=== PATIENT | male | born 1960 | race Caucasian/White ===

== ENCOUNTER 2019-03-29 02:45 | Emergency (ER) | payer MEDICARE, MEDICAID ==
[2019-03-29] MEDS ORDERED: DUONEB 0.5-3 MG/3 ml Neb IH ONE ×2 (03:00→03:18)
[2019-03-29] MEDS ORDERED: Lasix 40 MG/4 ML IV ONE (03:04)
--- NOTE | 2019-03-29 03:10 | ERPHSYRPT ---
- History of Present Illness Time Seen by Provider: 03/29/19 03:04 Source: patient, EMS Exam Limitations: other (patient with history of brain cancer, somewhat somnolent) Physician History: This is a 58-year-old white male with a history of brain cancer, congestive heart failure, myocardial infarction, atherosclerotic coronary artery disease, diabetes mellitus who states he has kidney problems, also high blood pressure and hyperlipidemia He is brought here by medics from [facility] patient with complaint of shortness of breath for 3 weeks he states he's been having lower extremity edema he states he hurts all over. 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 Apparently his family asked that he be brought here be because of his stay he was sent home from [place] last time he went there. Patient does state that if his hospitalized he wants to go to [place]. Past medical history includes congestive heart failure myocardial infarction, atherosclerotic coronary artery disease, diabetes, brain cancer, kidney problems , high blood pressure, hyperlipidemia Past surgical history includes brain surgery, C4-C5 fusion Timing/Duration: week(s) (3 weeks) Severity: moderate Associated Symptoms: shortness of breath, other (bilateral leg edema, pain all over), No nausea, No vomiting, No abdominal pain, No heartburn, No diaphoresis, No cough, No chills, No chest pain, No fever, No headaches, No loss of appetite , No malaise, No rash, No syncope, No seizure, No weakness Allergies/Adverse Reactions: No Known Drug Allergies Allergy (Unverified 03/29/19 03:09) Home Medications: Amlodipine Besylate 5 mg [Norvasc 5 mg] 1 tab PO DAILY 03/29/19 [History] Clonazepam 1 tab PO BID PRN 03/29/19 [History] Furosemide 40 mg [Lasix 40 MG] 1 tab PO DAILY 03/29/19 [History] Glipizide 5 mg [Glucotrol 5 MG] 1 tab PO BID 03/29/19 [History] HydrALAzine HCL 25 MG TAB [Apresoline 25 MG TABLET] 1 tab PO BID 03/29/19 [History] Pravastatin Sodium 20 mg PO HS 03/29/19 [History] Prochlorperazine Maleate 10 mg [Compazine 10 mg] 1 tab PO Q6HPRN PRN 03/29/19 [ History] dexAMETHasone [Dexamethasone] 1 tab PO QID 03/29/19 [History] - Review of Systems Constitutional: No Fever, No Chills Eyes: No Symptoms Ears, Nose, & Throat: No Symptoms Respiratory: Dyspnea Cardiac: Edema, No Chest Pain Abdominal/Gastrointestinal: No Abdominal Pain, No Nausea, No Vomiting, No Diarrhea Genitourinary Symptoms: No Dysuria Musculoskeletal: Other (eedema lower extremities), No Back Pain, No Neck Pain Skin: Other (weeping from skin lower extremities) Neurological: No Dizziness, No Focal Weakness, No Sensory Changes Psychological: No Symptoms Endocrine: No Symptoms All Other Systems: Reviewed and Negative - Past Medical History Neurological History: Other (brain cancer) Cardiac History: Congestive Heart Failure, Coronary Artery Disease, High Cholesterol, Hypertension, Myocardial Infarction ([place]) Respiratory History: CHF Endocrine Medical History: Diabetes Type II - Past Surgical History Other Surgical History: brain surgery, C5-C6 surgery - Nursing Vital Signs Nursing Vital Signs: Initial Vital Signs Temperature 97.4 F 03/29/19 02:55 Pulse Rate 91 H 03/29/19 02:55 Respiratory Rate 20 03/29/19 02:55 Blood Pressure 144/94 03/29/19 02:55 O2 Sat by Pulse Oximetry 94 L 03/29/19 02:55 Pain Scale Pain Intensity 9 - Physical Exam General Appearance: other (Morbidly obese white male somnolent able to answer questions well) Eye Exam: PERRL/EOMI, eyes nml inspection Ears, Nose, Throat Exam: normal ENT inspection, TMs normal, pharynx normal, moist mucous membranes Neck Exam: normal inspection, non-tender, supple, full range of motion Respiratory Exam: diminished breath sounds, wheezing (few wheezes) Cardiovascular Exam: regular rate/rhythm, capillary refill <2 sec, other (edema lower extremities weepingareas bilateral legs) Gastrointestinal/Abdomen Exam: soft, normal bowel sounds, No tenderness, No mass Extremity Exam: other (weeping areas bilateral legs) Neurologic Exam: oriented x 3, angiography technologist II-XII nml as tested, No alert (somnolent answers questions well) Skin Exam: other (weeping areas bilateral lower extremities) - Course Nursing assessment & vital signs reviewed: Yes EKG Interpreted by Me: RATE (88 bpm), Sinus Rhythm, NORMAL AXIS, Other (EKG: Sinus rhythm, at 88 beats per minute, normal axis, no acute ST or T wave changes noted) - Radiology Exams Chest X-ray Interpretation: Interpreted by me (Chest x-ray: Mild increased interstitial lung markings.) - CT Exams Head CT Interpretation: Tele-radiologist Report (CT of the head: Impression 1. 4 x 2.5 cm left posterior fossa mass on images 14 series to favored to be metastatic disease. 2. Abnormal left frontal lobe white matter indeterminate and could be evidence of intracranial metastatic disease. MRI with contrast would be helpful to better characterize this) Ordered Tests: Active Orders 24 hr Category Date Time Status Manufacturing Plant Controller STAT Care 03/29/19 03:02 Active EKG-ER Only STAT Care 03/29/19 03:00 Active IV Insertion STAT Care 03/29/19 03:00 Active Pulse Oximetry (ED) STAT Care 03/29/19 03:00 Active CHEST 1 VIEW (PORTABLE) Stat Exams 03/29/19 03:00 Taken HEAD WITHOUT CONTRAST [CT] Stat Exams 03/29/19 04:26 Taken BLOOD CULTURE Stat Lab 03/29/19 04:16 Received CBC W DIFF Stat Lab 03/29/19 03:00 Completed CMP Stat Lab 03/29/19 03:00 Completed CULTURE,URINE Stat Lab 03/29/19 03:22 Ordered D-DIMER QUANTITATION Stat Lab 03/29/19 04:16 Completed Glucose Stat Lab 03/29/19 05:37 Completed Lactic Acid Stat Lab 03/29/19 03:25 Completed Manual Differential NC Stat Lab 03/29/19 03:00 Completed NT PRO BNP Stat Lab 03/29/19 03:00 Completed PROTIME WITH INR Stat Lab 03/29/19 04:16 Completed PTT Stat Lab 03/29/19 04:16 Completed TROPONIN Q3H Lab 03/29/19 03:00 Completed TROPONIN Q3H Lab 03/29/19 05:40 Completed TROPONIN Q3H Lab 03/29/19 09:00 Ordered TROPONIN Q3H Lab 03/29/19 12:00 Ordered TROPONIN Q3H Lab 03/29/19 15:00 Ordered UA W/RFX UR CULTURE Stat Lab 03/29/19 03:22 Completed VENOUS BLOOD GAS Stat Lab 03/29/19 03:25 Completed Respiratory Therapy Assessment DAILY RT 03/29/19 03:20 Completed Medication Summary Discontinued Medications Generic Name Dose Route Start Last Admin Trade Name Elisabeth VILLASENORN Reason Stop Dose Admin Albuterol/Ipratropium 3 ml 03/29/19 03:00 03/29/19 03:21 Duoneb 0.5-3 Mg/3 Ml Neb IH 03/29/19 03:01 3 ml STAT ONE Administration Albuterol/Ipratropium Confirm 03/29/19 03:18 Duoneb 0.5-3 Mg/3 Ml Neb Administered 03/29/19 03:19 Dose 3 ml IH .STK-MED ONE Furosemide 40 mg 03/29/19 03:04 03/29/19 03:29 Lasix 40 Mg/4 Ml IV 03/29/19 03:05 40 mg STAT ONE Administration Furosemide Confirm 03/29/19 03:26 Lasix 40 Mg/4 Ml Administered 03/29/19 03:27 Dose 40 mg .ROUTE .STK-MED ONE Insulin Human Regular 10 unit 03/29/19 04:18 03/29/19 04:34 Novolin R IV 03/29/19 04:19 10 unit STAT ONE Administration Insulin Human Regular Confirm 03/29/19 04:31 Novolin R Administered 03/29/19 04:32 Dose 10 unit .ROUTE .STK-MED ONE Insulin Human Regular 7 unit 03/29/19 06:05 03/29/19 06:09 Novolin R IV 03/29/19 06:06 7 unit STAT ONE Administration Insulin Human Regular Confirm 03/29/19 06:07 Novolin R Administered 03/29/19 06:08 Dose 7 unit .ROUTE .STK-MED ONE Lab/Rad Data: Laboratory Result Diagrams 03/29/19 03:00 03/29/19 03:00 Laboratory Results 03/29/19 03/29/19 03/29/19 Range/Units 05:40 05:37 04:16 WBC (4.0-10.5) K/mm3 RBC (4.1-5.6) M/mm3 Hgb (12.5-18.0) gm/dl Hct (42-50) % MCV (78-100) fl MCH (26-32) pg MCHC (32-36) g/dl RDW (11.5-14.0) % Plt Count (150-450) K/mm3 MPV (6-9.5) fl Segmented Neutrophils (36.-66.) % Band Neutrophils (0.0-2.0) % Lymphocytes (Manual) (24-44) % Monocytes (Manual) (0.0-12.0) % Eosinophils (Manual) (0.00-3.0) % Toxic Granulation Platelet Estimate (NORMAL) RBC Morphology Polychromasia PT 10.3 (8.83-12.87) SECONDS INR 0.91 (0.8-3.0) APTT 25.9 (24.1-36.1) SECONDS D-Dimer 1173 H* (215-500) ng/mL pO2/FiO2 Ratio % VBG pH (7.32-7.42) VBG pCO2 at Pat Temp (42-55) mm/Hg VBG pO2 at Pat Temp (25-40) mm/Hg VBG HCO3 (22-28) meq/L VBG O2 Sat (Paula) (95-100) VBG Base Excess (-2.0-2.0) VBG Hemoglobin VBG Carboxyhemoglobin (0.0-6.9) % T HGB POC Potassium (3.5-5.1) Sodium (137-145) mmol/L Potassium (3.5-5.1) mmol/L Chloride (98-107) mmol/L Carbon Dioxide (22-30) mmol/L Anion Gap (5-15) MEQ/L BUN (9-20) mg/dL Creatinine (0.66-1.25) mg/dL Estimated GFR ML/MIN Glucose 485 H (74-106) mg/dL Lactic Acid (0.4-2.0) Calcium (8.4-10.2) mg/dL Total Bilirubin (0.2-1.3) mg/dL AST (17-59) U/L ALT (0-50) U/L Alkaline Phosphatase (38-126) U/L Troponin I 0.039 H* (0.000-0.034) ng/mL NT-Pro-B Natriuret Pep (0-900) pg/mL Serum Total Protein (6.3-8.2) g/dL Albumin (3.5-5.0) g/dL Urine Color (YELLOW) Urine Appearance (CLEAR) Urine pH (5-6) Ur Specific [place] (1.005-1.025) Urine Protein (Negative) Urine Ketones (NEGATIVE) Urine Blood (0-5) Bal/ul Urine Nitrite (NEGATIVE) Urine Bilirubin (NEGATIVE) Urine Urobilinogen (0-1) mg/dL Ur Leukocyte Esterase (NEGATIVE) Urine WBC (Auto) (0-5) /HPF Urine RBC (Auto) (0-2) /HPF U Epithel Cells (Auto) (FEW) /HPF Urine Bacteria (Auto) (NEGATIVE) /HPF Urine Culture Reflexed (NO) Urine Glucose (NEGATIVE) mg/dL 03/29/19 03/29/19 03/29/19 Range/Units 03:25 03:22 03:00 WBC (4.0-10.5) K/mm3 RBC (4.1-5.6) M/mm3 Hgb (12.5-18.0) gm/dl Hct (42-50) % MCV (78-100) fl MCH (26-32) pg MCHC (32-36) g/dl RDW (11.5-14.0) % Plt Count (150-450) K/mm3 MPV (6-9.5) fl Segmented Neutrophils (36.-66.) % Band Neutrophils (0.0-2.0) % Lymphocytes (Manual) (24-44) % Monocytes (Manual) (0.0-12.0) % Eosinophils (Manual) (0.00-3.0) % Toxic Granulation Platelet Estimate (NORMAL) RBC Morphology Polychromasia PT (8.83-12.87) SECONDS INR (0.8-3.0) APTT (24.1-36.1) SECONDS D-Dimer (215-500) ng/mL pO2/FiO2 Ratio 21.0 % VBG pH 7.35 (7.32-7.42) VBG pCO2 at Pat Temp 37 L (42-55) mm/Hg VBG pO2 at Pat Temp 170 H (25-40) mm/Hg VBG HCO3 20.4 L (22-28) meq/L VBG O2 Sat (Paula) 98.0 (95-100) VBG Base Excess -4.7 L (-2.0-2.0) VBG Hemoglobin 11.1 VBG Carboxyhemoglobin 6.4 (0.0-6.9) % T HGB POC Potassium 5.0 (3.5-5.1) Sodium 128 L (137-145) mmol/L Potassium 4.5 (3.5-5.1) mmol/L Chloride 102 (98-107) mmol/L Carbon Dioxide 21 L (22-30) mmol/L Anion Gap 8.8 (5-15) MEQ/L BUN 62 H (9-20) mg/dL Creatinine 2.24 H (0.66-1.25) mg/dL Estimated GFR 32.2 ML/MIN Glucose 619 H* (74-106) mg/dL Lactic Acid 1.6 (0.4-2.0) Calcium 8.3 L (8.4-10.2) mg/dL Total Bilirubin 0.30 (0.2-1.3) mg/dL AST 13 L (17-59) U/L ALT 31 (0-50) U/L Alkaline Phosphatase 110 (38-126) U/L Troponin I (0.000-0.034) ng/mL NT-Pro-B Natriuret Pep 911 H (0-900) pg/mL Serum Total Protein 5.4 L (6.3-8.2) g/dL Albumin 2.6 L (3.5-5.0) g/dL Urine Color STRAW (YELLOW) Urine Appearance CLEAR (CLEAR) Urine pH 5.0 (5-6) Ur Specific [place] 1.018 (1.005-1.025) Urine Protein >=500 (Negative) Urine Ketones NEGATIVE (NEGATIVE) Urine Blood SMALL (0-5) Bal/ul Urine Nitrite NEGATIVE (NEGATIVE) Urine Bilirubin NEGATIVE (NEGATIVE) Urine Urobilinogen NEGATIVE (0-1) mg/dL Ur Leukocyte Esterase NEGATIVE (NEGATIVE) Urine WBC (Auto) 3-5 (0-5) /HPF Urine RBC (Auto) 0-2 (0-2) /HPF U Epithel Cells (Auto) NONE (FEW) /HPF Urine Bacteria (Auto) NONE (NEGATIVE) /HPF Urine Culture Reflexed ORDERED SEPARATELY (NO) Urine Glucose >=500 (NEGATIVE) mg/dL 03/29/19 03/29/19 Range/Units 03:00 03:00 WBC 11.5 H (4.0-10.5) K/mm3 RBC 4.17 (4.1-5.6) M/mm3 Hgb 11.5 L (12.5-18.0) gm/dl Hct 35.8 L (42-50) % MCV 85.9 (78-100) fl MCH 27.5 (26-32) pg MCHC 32.1 (32-36) g/dl RDW 19.2 H (11.5-14.0) % Plt Count 147 L (150-450) K/mm3 MPV 10.7 H (6-9.5) fl Segmented Neutrophils 87 H (36.-66.) % Band Neutrophils 1 (0.0-2.0) % Lymphocytes (Manual) 10 L (24-44) % Monocytes (Manual) 1 (0.0-12.0) % Eosinophils (Manual) 1 (0.00-3.0) % Toxic Granulation RARE Platelet Estimate NORMAL (NORMAL) RBC Morphology ABNORMAL Polychromasia RARE PT (8.83-12.87) SECONDS INR (0.8-3.0) APTT (24.1-36.1) SECONDS D-Dimer (215-500) ng/mL pO2/FiO2 Ratio % VBG pH (7.32-7.42) VBG pCO2 at Pat Temp (42-55) mm/Hg VBG pO2 at Pat Temp (25-40) mm/Hg VBG HCO3 (22-28) meq/L VBG O2 Sat (Paula) (95-100) VBG Base Excess (-2.0-2.0) VBG Hemoglobin VBG Carboxyhemoglobin (0.0-6.9) % T HGB POC Potassium (3.5-5.1) Sodium (137-145) mmol/L Potassium (3.5-5.1) mmol/L Chloride (98-107) mmol/L Carbon Dioxide (22-30) mmol/L Anion Gap (5-15) MEQ/L BUN (9-20) mg/dL Creatinine (0.66-1.25) mg/dL Estimated GFR ML/MIN Glucose (74-106) mg/dL Lactic Acid (0.4-2.0) Calcium (8.4-10.2) mg/dL Total Bilirubin (0.2-1.3) mg/dL AST (17-59) U/L ALT (0-50) U/L Alkaline Phosphatase (38-126) U/L Troponin I 0.036 H* (0.000-0.034) ng/mL NT-Pro-B Natriuret Pep (0-900) pg/mL Serum Total Protein (6.3-8.2) g/dL Albumin (3.5-5.0) g/dL Urine Color (YELLOW) Urine Appearance (CLEAR) Urine pH (5-6) Ur Specific [place] (1.005-1.025) Urine Protein (Negative) Urine Ketones (NEGATIVE) Urine Blood (0-5) Bal/ul Urine Nitrite (NEGATIVE) Urine Bilirubin (NEGATIVE) Urine Urobilinogen (0-1) mg/dL Ur Leukocyte Esterase (NEGATIVE) Urine WBC (Auto) (0-5) /HPF Urine RBC (Auto) (0-2) /HPF U Epithel Cells (Auto) (FEW) /HPF Urine Bacteria (Auto) (NEGATIVE) /HPF Urine Culture Reflexed (NO) Urine Glucose (NEGATIVE) mg/dL - Progress Progress: improved Progress Note: 03/29/19 04:28 58-year-old white male with history of congestive heart failure, myocardial infarction, atherosclerotic coronary artery disease, diabetes, brain cancer, high blood pressure, hyperlipidemia. Patient is noted to have problems breathing by his family. Is also states that he's been having edema and weeping from his lower extremities. Patient arrives patient is very somnolent however he answers questions quite well. Patient with diminished breath sounds with a few wheezes on arrival Patient was EKG sinus rhythm, 88 beats per minute normal axis normal EKG, Patient's chest x-ray of mild increased interstitial markings Patient's BNP is 911 patient's chemistry sodium 128 potassium 4.5 chloride 102 bicarbonate 21 BUN 62 creatinine 2.24 glucose is 619 Patient's CBC white blood cell of 0.5 hemoglobin 11.5 hematocrit 35.8 platelets 417 patient has an elevated troponin of 0.036 normal is 0.034 Patient was elevated d-dimer of 1173 Unfortunately the patient's GFR his 32.2 and he will not qualify for IV contrast for a CTA. Patient is given Lasix 40 mg IV patient's venous gases pH 7.35 PCO2 37 PO2 170 bicarbonate 20.4 oxygenation is 98.0 on room air Impression 1 shortness of breath. 2. Peripheral edema. 3. Hyperglycemia. 4. Renal failure. 5. Elevated d-dimer.. Patient has been given a DuoNeb treatment. He has also been given Lasix 40 mg IV. I have ordered Novolin R 10 units IV. Patient does not have any ketones in his urine he is not acidotic. I will go ahead and CT patient's head there is consideration whether or not to give the patient anticoagulations and he does have a history of brain cancer he is quite somnolent and would like to see CT of the head prior to giving the patient any aspirin or any type of anticoagulation. I've discussed the patient's case with Dr. Barron at [facility] emergency room in [place]. She states that she will take the patient is accepting physician however they will call back with a bed. Will defer anticoagulation at this time head CT results are pending. Dr. Barron stated that she did not feel the patient needed anticoagulation at this time will be checked patient's blood sugar at approximately one hour after last administration. Will transfer patient to [facility]. ,Patient with a stat glucose of 485 given 7 units of Novolin R IV 03/29/19 05:20 03/29/19 06:41 - Departure Departure Disposition: Transfer ([facility]) Clinical Impression: Peripheral edema, Shortness of breath, Elevated d-dimer Renal failure Qualifiers: Renal failure chronicity: unspecified chronicity Qualified Code(s): N19 - Unspecified kidney failure Condition: Fair Critical Care Time: No Referrals: DOCTOR,NO FAMILY [Primary Care Provider] -
[2019-03-29] MEDS ORDERED: Lasix 40 MG/4 ML ONE (03:26)
[2019-03-29 03:31] LABS: Appearance CLEAR (CLEAR); Bilirubin NEGATIVE (NEGATIVE); Blood SMALL Ery/ul (0-5); Glucose >=500 mg/dL (NEGATIVE); Ketones NEGATIVE (NEGATIVE); Leukocyte Esterase NEGATIVE (NEGATIVE); Nitrite NEGATIVE (NEGATIVE); Protein,Urine Dip >=500 (Negative); RBC 0-2 /HPF (0-2); Specific Gravity 1.018 (1.005-1.025); Urobilinogen NEGATIVE mg/dL (0-1)
[2019-03-29 03:37] LABS: Lactic Acid 1.6 (0.4-2.0); VBG BASE EXCESS -4.7 (-2.0-2.0); VBG CARBOXYHEMOGLOBIN 6.4 % T HGB (0.0-6.9); VBG HCO3- 20.4 meq/L (22-28); VBG HEMOGLOBIN 11.1; VBG pH 7.35 (7.32-7.42)
[2019-03-29 03:56] LABS: Hematocrit 35.8 % (42-50); Hemoglobin 11.5 gm/dl (12.5-18.0); Mean Cell Volume 85.9 fl (78-100); Mean Corpuscular Hemoglobin 27.5 pg (26-32); Mean Corpuscular Hgb Concent. 32.1 g/dl (32-36); Mean Platelet Volume 10.7 fl (6-9.5); Platelet Count 147 K/mm3 (150-450); Red Blood Count 4.17 M/mm3 (4.1-5.6); Red Cell Distribution Width 19.2 % (11.5-14.0); White Blood Count 11.5 K/mm3 (4.0-10.5)
[2019-03-29 04:15] LABS: ALBUMIN 2.6 g/dL (3.5-5.0); ANION GAP 8.8 MEQ/L (5-15); BILIRUBIN,TOTAL 0.3 mg/dL (0.2-1.3); Calcium 8.3 mg/dL (8.4-10.2); Creatinine 1 2.24 mg/dL (0.66-1.25); Potassium 4.5 mmol/L (3.5-5.1); Total Protein 5.4 g/dL (6.3-8.2)
[2019-03-29 04:17] LABS: INR 0.91 (0.8-3.0); PROTIME 10.3 SECONDS (8.83-12.87)
[2019-03-29] MEDS ORDERED: NovoLIN R IV ONE ×2 (04:18→06:05)
[2019-03-29 04:19] LABS: PTT 25.9 SECONDS (24.1-36.1)
[2019-03-29] MEDS ORDERED: NovoLIN R ONE ×2 (04:31→06:07)
[2019-03-29 04:51] LABS: BAND 1 % (0.0-2.0); Eosinophil 1 % (0.00-3.0); Lymphocytes 10 % (24-44); Monocyte 1 % (0.0-12.0); Neutrophils 87 % (36.-66.); Platelet Estimate NORMAL (NORMAL); Polychromasia RARE; Total Cells Counted 100; Toxic Granulation RARE
[2019-03-29] MEDS ORDERED: Sodium Chloride 0.9% 1000 ML 1,000 ML ONE (06:43)
[2019-03-29] MEDS ORDERED: Sodium Chloride 0.9% 1000 ML 1,000 ML IV SCH (06:45)
[2019-03-29 07:01] VITALS: BP 136/73; PULSE 78; O2SAT 99
--- NOTE | 2019-03-29 08:53 | XRAY ---
Indication: Lethargy. History of brain cancer. Multiple contiguous axial images obtained through the head without contrast as ordered. Comparison: None There has been left occipital craniectomy with underlying left cerebellar 4 x 2.5 cm hypoattenuation possibly postsurgical encephalomalacia. Underlying primary/metastatic malignancy not completely excluded on this noncontrast exam. Smaller focus 1.0 x 2.5 cm subcortical hypoattenuation seen in the left mid parietal lobe possible additional malignancy. No acute intracranial hemorrhage, hydrocephalus, or mass effect. Fourth ventricle is midline. Remaining bony calvarium intact. Visualized paranasal sinuses and mastoid air cells are clear. Impression: Left occipital craniectomy with underlying cerebellar hypoattenuation possibly postsurgical. Primary/metastatic malignancy not completely excluded. Smaller left mid parietal subcortical hypoattenuation possibly additional malignancy. Comparison studies would be of benefit. If not available, MRI with contrast exam may yield further information. Comment: Preliminary interpretation was made by [facility]. No critical discrepancy. CTDI 68.51
--- NOTE | 2019-03-29 08:57 | XRAY ---
Indication: Short of breath. Edema. Lung and brain cancer. Comparison: None Portable apical lordotic chest obtained with lung bases partially obscured due to patient body habitus. No focal infiltrate, consolidation, or large effusion. Heart and mediastinal structures are prominent with left-sided dual-lead pacemaker. Bony thorax intact. Impression: Nonacute limited portable chest exam. CT chest with contrast may yield further information if clinically warranted.
== END 2019-03-29 07:10 | disposition short-term general hospital (02) ==
LOC: ED 02:45
DX: R60.0 Localized edema (principal); N19 Unspecified kidney failure; R06.02 Shortness of breath; E11.65 Type 2 diabetes mellitus with hyperglycemia; Z79.4 Long term (current) use of insulin; R79.89 Other specified abnormal findings of blood chemistry; I10 Essential (primary) hypertension; Z79.899 Other long term (current) drug therapy
CPT/HCPCS: 36000; 36415; 70450; 71045; 80053; 81001; 82805; 82947; 82962; 83605; 83880; 84484; 85025; 85379; 85610; 85730; 87040; 87086; 93005; 93041; 94640; 94760; 96374; 96375; 96376; 99285; J1940; A9270-GY